=== PATIENT | male | born 1965 | race Caucasian/White ===

== ENCOUNTER 2019-10-29 21:36 | Emergency (ER) | payer SELFPAY ==
[~2019-10-29] VITALS: Ht 172.7 cm; Wt 77.1 kg
[2019-10-29 21:40] VITALS: BP_SYST 145
--- NOTE | 2019-10-29 21:40 | NUR ---
Patient triaged in er hawk and placed in er hawk w/ ambulance gurney. VSS and patient appears in no acute distress at this time. Accompanied by ems, awaiting available bed, and MD notified of need for MSE.
--- NOTE | 2019-10-29 22:13 | NUR ---
ER at bedside examining .
--- NOTE | 2019-10-29 22:13 | NUR ---
Pt brought in by s ambulance. Pt awake, alert, oriented x4. Pt chief complaint of abdominal pain x2 weeks. Pt states that he has small protrusion in right lower abdomen. Pt states that he has pain on palpation. Pt states he thinks it is "A hernia of some sort" and requested evaluation. Pt denies chest pain, nausea, vomiting, diarrhea, shortness of breath. Pt denies any other medical complaint at this time. Pt resting comfortably in chair. VSS.
[2019-10-29 23:00] LABS: BASOPHILS # (AUTO) 0.1 K/uL (0.0-0.2); BASOPHILS % (AUTO) 0.9 % (0.0-2.0); EOSINOPHILS # (AUTO) 0.3 K/uL (0.0-0.4); EOSINOPHILS % (AUTO) 3.4 % (0.0-4.0); HEMATOCRIT 40.9 % (36-54); HEMOGLOBIN 13.8 g/dL (14.0-18.0); LYMPHOCYTES % (AUTO) 25.7 % (20.5-51.5); MEAN CORPUSCULAR HEMOGLOBIN 32 pg (27-31); MEAN CORPUSCULAR HGB CONC 34 % (32-36); MEAN CORPUSCULAR VOLUME 95 fL (79.0-98.0); MONOCYTES # (AUTO) 0.5 K/uL (0.0-1.0); MONOCYTES % (AUTO) 6.7 % (1.7-9.3); NEUTROPHILS # (AUTO) 4.8 K/uL (1.8-7.7); NEUTROPHILS % (AUTO) 63.3 % (40.0-70.0); PLATELET COUNT (AUTO) 236 K/uL (130-430); RED BLOOD CELL COUNT(AUTO) 4.32 MIL/uL (4.2-6.2); RED CELL DISTRIBUTION WIDTH 14.4 % (9.0-15.0); WHITE BLOOD COUNT (AUTO) 7.6 K/uL (4.8-10.8)
[2019-10-29 23:14] LABS: CALCIUM 8.6 mg/dL (8.4-11.0); CREATININE 1.18 mg/dL (0.55-1.30); POTASSIUM 3.7 mmol/L (3.5-5.1)
[2019-10-29 23:19] LABS: ALBUMIN 3.4 g/dL (3.4-4.8); TOTAL BILIRUBIN 0.3 mg/dL (0.0-1.0)
--- NOTE | 2019-10-30 01:44 | NUR ---
BEDSIDE RE-EVALUATING PATIENT
--- NOTE | 2019-10-30 03:00 | NUR ---
Pt re-examined in ED chair. Care plan, and discharge plan discussed with patient.
[2019-10-30 04:45] VITALS: BP_SYST 140
--- NOTE | 2019-10-30 04:45 | NUR ---
Patient given written and verbal discharge instructions and verbalizes understanding. ER MD discussed with patient the results and treatment provided. Patient in stable condition. ID arm band removed. No IV Rx of tylenol given. Patient educated on pain management and to follow up with PMD. Pain Scale 0/10. Opportunity for questions provided and answered. Medication side effect fact sheet provided.
== END 2019-10-30 04:45 | disposition home or self-care (01) ==
LOC: SED 21:36
DX: K59.00 Constipation, unspecified (principal); N40.0 Benign prostatic hyperplasia without lower urinary tract symptoms; N43.3 Hydrocele, unspecified
CPT/HCPCS: 36415; 76870-TC; 80053; 83690-TC; 85025; 99285

== ENCOUNTER 2023-08-25 14:07 | Inpatient (IN) | payer MEDICAID ==
[~2023-08-25] VITALS: Ht 162.6 cm; Wt 72.6 kg
[2023-08-25 16:00] VITALS: BP_SYST 158; PULSE 118; RESP 20; TEMP 99; O2SAT 96
[2023-08-25] MEDS ORDERED: NACL 0.9% 1,000 ML IV ONE (18:15)
[2023-08-25] MEDS ORDERED: PIPERACILLIN/TAZO 3.375 GM in NS 50 ML IV ONE (18:15)
[2023-08-25 19:00] LABS: BASOPHILS # (AUTO) 0.1 K/uL (0.0-0.2); BASOPHILS % (AUTO) 0.8 % (0.0-2.0); EOSINOPHILS # (AUTO) 0.4 K/uL (0.0-0.4); EOSINOPHILS % (AUTO) 5.5 % (0.0-4.0); HEMATOCRIT 26.8 % (36-54); HEMOGLOBIN 8.8 g/dL (14.0-18.0); LYMPHOCYTES # (AUTO) 1.7 K/uL (1.0-5.5); MEAN CORPUSCULAR HEMOGLOBIN 30 pg (27-31); MEAN CORPUSCULAR HGB CONC 33 % (32-36); MEAN CORPUSCULAR VOLUME 92 fL (79.0-98.0); MONOCYTES # (AUTO) 0.7 K/uL (0.0-1.0); MONOCYTES % (AUTO) 8.2 % (1.7-9.3); NEUTROPHILS # (AUTO) 5.2 K/uL (1.8-7.7); NEUTROPHILS % (AUTO) 64.5 % (40.0-70.0); PLATELET COUNT (AUTO) 264 K/uL (130-430); RED BLOOD CELL COUNT(AUTO) 2.93 MIL/uL (4.2-6.2); RED CELL DISTRIBUTION WIDTH 16.8 % (9.0-15.0); WHITE BLOOD COUNT (AUTO) 8.1 K/uL (4.8-10.8)
[2023-08-25 19:07] LABS: PROTHROMBIN TIME 10.3 SECS (9.5-12.5)
[2023-08-25 19:08] LABS: ANION GAP 5 (5-15); CALCIUM 8.4 mg/dL (8.4-11.0); CARBON DIOXIDE 25 mmol/L (23-29); CHLORIDE 99 mmol/L (98-107); GFR AFRICAN AMERICAN 99 mL/min (>90); GLUCOSE 90 mg/dL (74-106); POTASSIUM 3.2 mmol/L (3.5-5.1); SODIUM SERUM 129 mmol/L (136-145); UREA NITROGEN, BLOOD 18 mg/dL (8-21)
[2023-08-25 19:12] LABS: GFR NON AFRICAN-AMERICAN 82 mL/min (>90)
[2023-08-25 19:28] LABS: ALANINE AMINOTRANSFERASE 58 U/L (12-78); ALBUMIN 2.3 g/dL (3.4-4.8); ASPARTATE AMINOTRANSFERASE 41 U/L (10-37); BILIRUBIN,DIRECT 0.2 mg/dL (0.0-0.3); TOTAL BILIRUBIN 0.6 mg/dL (0.0-1.0); TOTAL PROTEIN, SERUM 5.7 g/dL (6.4-8.3)
[2023-08-25] MEDS ORDERED: PIPERACILLIN/TAZOBACTAM 3.375 GM/VIAL (ZOSYN) IV ONE (21:10)
[2023-08-25 21:27] LABS: BLOOD, URINE NEGATIVE (NEGATIVE); CLARITY/URINE CLEAR (CLEAR); GLUCOSE,URINE NEGATIVE (NEGATIVE); KETONES,URINE NEGATIVE (NEGATIVE); LEUKOCYTE ESTERASE ,URINE NEGATIVE (NEGATIVE); NITRITE, URINE NEGATIVE (NEGATIVE); PROTEIN URINE 1+ (NEGATIVE)
[2023-08-25 21:38] LABS: BILIRUBIN,URINE 1+ (NEGATIVE); COLOR,URINE AMBER (YELLOW)
[2023-08-25 21:39] LABS: RBC,URINE NONE SEEN /HPF (0-3); WBC,URINE 0-3 /HPF (0-3)
[2023-08-25 21:40] LABS: BACTERIA,URINE RARE /HPF (None Seen); BARBITURATE, URINE NEGATIVE (NEG <=200); BENZODIAZEPINE, URINE NEGATIVE (NEG <=150); CANNABINOID, URINE POSITIVE (NEG <=50); COCAINE, URINE NEGATIVE (NEG <=150); METHAMPHETAMINES SCREEN,URINE POSITIVE (NEG <=500); MUCUS,URINE None Seen /LPF (None Seen); OPIATE, URINE NEGATIVE (NEG <=100); PHENCYCLIDINE SCREEN,URINE NEGATIVE (NEG <=25); URINE AMPHETAMINE POSITIVE (NEG <=500); URINE METHADONE NEGATIVE (NEG <=200); URINE OXYCODONE SCREEN NEGATIVE (NEG <=100)
[2023-08-25 21:41] LABS: UR TRICYCLIC ANTIDEPRESSANTS NEGATIVE (NEG <=300)
[2023-08-25] MEDS: NACL 0.9% 1,000 ML IV SCH (22:00)
[2023-08-25] MEDS ORDERED: VANCOMYCIN HCL 1000 MG/VIAL IV ONE (23:10)
[2023-08-26] MEDS: VANCOMYCIN HCL 1,250 MG in NS 250 ML IV SCH ×3 (00:07→23:00)
[2023-08-26] MEDS ORDERED: SODIUM BICARBONATE 8.4% JECT 50 MEQ/50 ML SYRINGE IVP ONE (00:15)
[2023-08-26 03:44] VITALS: BP_SYST 153; PULSE 115; RESP 16; TEMP 99
[2023-08-26] MEDS: NACL 0.9% 1,000 ML IV SCH ×2 (09:28→21:20)
[2023-08-26] MEDS ORDERED: POTASSIUM CHLORIDE 20 MEQ TABLET.ER PO PRN (09:30)
[2023-08-26] MEDS ORDERED: NALOXONE HCL 0.4 MG/ML AMP (NARCAN) IVP PRN (09:30)
[2023-08-26] MEDS ORDERED: LORazepam 2 MG/ML VIAL IVP PRN (09:30)
[2023-08-26] MEDS ORDERED: DOCUSATE SODIUM 100 MG CAPSULE PO PRN (09:30)
[2023-08-26] MEDS ORDERED: ONDANSETRON HCL 4 MG/2 ML VIAL IVP PRN (09:30)
[2023-08-26] MEDS ORDERED: MUPIROCIN 2% TOPICAL OINTMENT 22 GM NS PRN (09:30)
[2023-08-26] MEDS ORDERED: MAGNESIUM SULFATE 50 ML IV PRN (09:30)
[2023-08-26] MEDS ORDERED: ZOLPIDEM TARTRATE 5 MG TABLET PO PRN (09:30)
[2023-08-26] MEDS: HEPARIN SODIUM,PORCINE 5,000 UNITS/ML VIAL SUBCUT SCH ×2 (09:32→21:00)
[2023-08-26] MEDS ORDERED: ACETAMINOPHEN 500 MG TABLET PO PRN (10:00)
[2023-08-26 10:24] LABS: ALBUMIN 2.1 g/dL (3.4-4.8); CALCIUM 8.2 mg/dL (8.4-11.0); CREATININE 1.27 mg/dL (0.55-1.30); POTASSIUM 3.4 mmol/L (3.5-5.1); TOTAL BILIRUBIN 0.6 mg/dL (0.0-1.0); TOTAL PROTEIN, SERUM 5.3 g/dL (6.4-8.3)
[2023-08-26] MEDS ORDERED: NICOTINE 21 MG/24 HR PATCH.TD24 TD ONE (10:30)
[2023-08-26] MEDS ORDERED: PERMETHRIN 5% 60 GM CREAM.GM. TP ONE (10:30)
[2023-08-26] MEDS ORDERED: METOPROLOL TARTRATE 25 MG TABLET PO ONE (10:30)
[2023-08-26] MEDS ORDERED: POTASSIUM CHLORIDE 20 MEQ TABLET.ER PO ONE (10:30)
[2023-08-26 10:45] VITALS: O2SAT 98
[2023-08-26 10:45] LABS: BASOPHILS % (AUTO) 0.6 % (0.0-2.0); EOSINOPHILS # (AUTO) 0.1 K/uL (0.0-0.4); EOSINOPHILS % (AUTO) 2.1 % (0.0-4.0); HEMATOCRIT 24.9 % (36-54); HEMOGLOBIN 8.1 g/dL (14.0-18.0); LYMPHOCYTES % (AUTO) 13.5 % (20.5-51.5); MEAN CORPUSCULAR HEMOGLOBIN 30 pg (27-31); MEAN CORPUSCULAR HGB CONC 32 % (32-36); MEAN CORPUSCULAR VOLUME 92 fL (79.0-98.0); MONOCYTES # (AUTO) 0.5 K/uL (0.0-1.0); MONOCYTES % (AUTO) 6.9 % (1.7-9.3); NEUTROPHILS # (AUTO) 5.6 K/uL (1.8-7.7); NEUTROPHILS % (AUTO) 76.9 % (40.0-70.0); PLATELET COUNT (AUTO) 227 K/uL (130-430); RED BLOOD CELL COUNT(AUTO) 2.72 MIL/uL (4.2-6.2); RED CELL DISTRIBUTION WIDTH 16.7 % (9.0-15.0); WHITE BLOOD COUNT (AUTO) 7.2 K/uL (4.8-10.8)
[2023-08-26 10:55] VITALS: BP_SYST 137; PULSE 82; RESP 16; TEMP 99.4; O2SAT 99
[2023-08-26 12:23] VITALS: BP_SYST 145; PULSE 87; RESP 18; TEMP 98.2; O2SAT 98
[2023-08-26 16:56] VITALS: BP_SYST 140; PULSE 87; RESP 17; TEMP 99; O2SAT 98
[2023-08-26] MEDS ORDERED: METOPROLOL TARTRATE 25 MG TABLET PO SCH (21:00)
[2023-08-26 21:15] VITALS: BP_SYST 139; BP_SYST 143; PULSE 66; RESP 18; TEMP 99.2; O2SAT 95; O2SAT 96
[2023-08-26] MEDS: HYDROcodone/ACETAMIN 5-325 MG TAB (NORCO/ VICODIN) PO PRN (21:37)
[2023-08-27] VITALS: BP_SYST 139; PULSE 104; RESP 20; TEMP 98.3; O2SAT 96
[2023-08-27] MEDS: NACL 0.9% 1,000 ML IV SCH (05:01)
[2023-08-27] MEDS: HYDROcodone/ACETAMIN 5-325 MG TAB (NORCO/ VICODIN) PO PRN (05:01)
[2023-08-27 07:57] LABS: CALCIUM 7.4 mg/dL (8.4-11.0); CREATININE 1.18 mg/dL (0.55-1.30); POTASSIUM 4.1 mmol/L (3.5-5.1)
[2023-08-27 08:00] VITALS: BP_SYST 131; PULSE 99; RESP 16; TEMP 98.2; O2SAT 99
[2023-08-27 08:04] LABS: BASOPHILS # (AUTO) 0.1 K/uL (0.0-0.2); BASOPHILS % (AUTO) 0.8 % (0.0-2.0); EOSINOPHILS # (AUTO) 0.1 K/uL (0.0-0.4); EOSINOPHILS % (AUTO) 1.3 % (0.0-4.0); HEMATOCRIT 27.2 % (36-54); HEMOGLOBIN 8.8 g/dL (14.0-18.0); LYMPHOCYTES # (AUTO) 1.4 K/uL (1.0-5.5); LYMPHOCYTES % (AUTO) 19.3 % (20.5-51.5); MEAN CORPUSCULAR HEMOGLOBIN 30 pg (27-31); MEAN CORPUSCULAR HGB CONC 32 % (32-36); MEAN CORPUSCULAR VOLUME 92 fL (79.0-98.0); MONOCYTES # (AUTO) 0.6 K/uL (0.0-1.0); MONOCYTES % (AUTO) 8.4 % (1.7-9.3); NEUTROPHILS % (AUTO) 70.2 % (40.0-70.0); PLATELET COUNT (AUTO) 239 K/uL (130-430); RED BLOOD CELL COUNT(AUTO) 2.98 MIL/uL (4.2-6.2); RED CELL DISTRIBUTION WIDTH 16.9 % (9.0-15.0); WHITE BLOOD COUNT (AUTO) 7.1 K/uL (4.8-10.8)
[2023-08-27] MEDS ORDERED: CARVEDILOL 12.5 MG TABLET (COREG) PO SCH (09:00)
[2023-08-27] MEDS ORDERED: NICOTINE 21 MG/24 HR PATCH.TD24 TD SCH (09:00)
[2023-08-27] MEDS: HEPARIN SODIUM,PORCINE 5,000 UNITS/ML VIAL SUBCUT SCH (09:00)
[2023-08-27] MEDS ORDERED: lisinopriL 20 MG TABLET PO SCH (09:00)
[2023-08-27] MEDS: VANCOMYCIN HCL 1,250 MG in NS 250 ML IV SCH (10:09)
[2023-08-27 11:07] VITALS: BP_SYST 116; PULSE 91; RESP 16; TEMP 96.5; O2SAT 99
[2023-08-27 11:11] VITALS: O2SAT 99
[2023-08-27] MEDS ORDERED: FURO-149 PO (14:18)
[2023-08-27] MEDS ORDERED: CEPH250C PO (14:18)
[2023-08-27] MEDS ORDERED: CARV12.548 PO (14:18)
[2023-08-27] MEDS ORDERED: POTA-178 PO (14:18)
[2023-08-27 15:15] VITALS: BP_SYST 127; PULSE 87; RESP 16; TEMP 97.3; O2SAT 94
[2023-08-27 16:24] VITALS: BP_SYST 125; PULSE 85; RESP 18; TEMP 97.5; O2SAT 99
[2023-08-27] MEDS ORDERED: ASPI-1393 PO (16:39)
[2023-08-27] MEDS ORDERED: LISI20TA30 PO (16:39)
== END 2023-08-27 18:46 | disposition home or self-care (01) | DRG 383 ==
LOC: SED 14:07 → STU 21:47
PROVIDERS: ADMIT General Practice; ATTEND General Practice
DX: L03.115 Cellulitis of right lower limb (principal); I21.A1 Myocardial infarction type 2; E44.0 Moderate protein-calorie malnutrition; I42.0 Dilated cardiomyopathy; E87.1 Hypo-osmolality and hyponatremia; I42.6 Alcoholic cardiomyopathy; E87.6 Hypokalemia; F15.10 Other stimulant abuse, uncomplicated; I10 Essential (primary) hypertension; F17.210 Nicotine dependence, cigarettes, uncomplicated; F12.10 Cannabis abuse, uncomplicated; I25.5 Ischemic cardiomyopathy; I42.7 Cardiomyopathy due to drug and external agent; Z91.199 Patient's noncompliance with other medical treatment and regimen due to unspecified reason; Z79.899 Other long term (current) drug therapy; Z59.02 Unsheltered homelessness; Z68.27 Body mass index [BMI] 27.0-27.9, adult; Z71.51 Drug abuse counseling and surveillance of drug abuser; Y92.89 Other specified places as the place of occurrence of the external cause
CPT/HCPCS: 36415; 71045; 80048; 80053; 80076; 80202; 80307; 81000; 81001; 81015; 83037; 83605; 83735; 83880; 84484; 85025; 85610-TC; 85730-TC; 87040; 87086; 93005; 93306; 96365; 99291; G0378; J1644; J2543; J3370; J7050

== ENCOUNTER 2024-01-24 20:40 | Inpatient (IN) | payer SELFPAY ==
[~2024-01-24] VITALS: Ht 172.7 cm; Wt 77.6 kg
[~2024-01-24 20:40] MED LIST: ASPI-1393 PO; CARV12.548 PO; CEPH250C PO; FURO-149 PO; LISI20TA30 PO; POTA-178 PO
[2024-01-24 20:59] VITALS: BP_SYST 138; PULSE 100; RESP 16; TEMP 96.5; O2SAT 100
[2024-01-24 21:39] LABS: HEMATOCRIT 34.9 % (36-54); HEMOGLOBIN 11.5 g/dL (14.0-18.0); MEAN CORPUSCULAR HEMOGLOBIN 24 pg (27-31); MEAN CORPUSCULAR HGB CONC 33 % (32-36); MEAN CORPUSCULAR VOLUME 74 fL (79.0-98.0); PLATELET COUNT (AUTO) 232 K/uL (130-430); RED BLOOD CELL COUNT(AUTO) 4.73 MIL/uL (4.2-6.2); RED CELL DISTRIBUTION WIDTH 22.2 % (9.0-15.0); WHITE BLOOD COUNT (AUTO) 7.3 K/uL (4.8-10.8)
[2024-01-24 22:00] LABS: ALBUMIN 2.7 g/dL (3.4-4.8); CALCIUM 7.9 mg/dL (8.4-11.0); CREATININE 1.29 mg/dL (0.55-1.30); POTASSIUM 3.5 mmol/L (3.5-5.1); TOTAL BILIRUBIN 2.2 mg/dL (0.0-1.0); TOTAL PROTEIN, SERUM 6.7 g/dL (6.4-8.3)
[2024-01-24 22:04] LABS: INR 1.2 (0.80-1.20); PROTHROMBIN TIME 12.1 SECS (9.5-12.5)
[2024-01-24 22:16] LABS: BASOPHILS % (MANUAL) 0 % (0-2); EOSINOPHILS % (MANUAL) 0 % (0-7); LYMPHOCYTES % (MANUAL) 29 % (20-46); MONOCYTES % (MANUAL) 6 % (0-11)
[2024-01-24 22:17] LABS: ANISOCYTOSIS 3+; HELMET CELLS FEW; HYPOCHROMASIA 2+; OVALOCYTES FEW; PLATELET ESTIMATE ADEQUATE (ADEQUATE); TEAR DROP CELLS FEW
[2024-01-24] MEDS: PIPERACILLIN/TAZO 4.5 GM in NS 100 ML IV ONE (22:30)
[2024-01-24] MEDS: NS 1000 ML IV.SOLN IV ONE (22:50)
[2024-01-24] MEDS ORDERED: ONDANSETRON HCL 4 MG/2 ML VIAL IVP PRN (23:15)
[2024-01-24] MEDS ORDERED: hydrALAZINE HCL 20 MG/ML VIAL IVP PRN (23:15)
[2024-01-24] MEDS ORDERED: ACETAMINOPHEN 325 MG TABLET PO PRN (23:15)
[2024-01-24] MEDS ORDERED: PIPERACILLIN/TAZOBACTAM 4.5 GM/VIAL (ZOSYN) IV ONE (23:48)
[2024-01-24] MEDS: METOPROLOL TARTRATE 25 MG TABLET PO SCH (23:51)
[2024-01-25] MEDS: HYDROcodone/ACETAMIN 5-325 MG TAB (NORCO/ VICODIN) PO PRN (00:01)
[2024-01-25] MEDS ORDERED: VANCOMYCIN HCL 1000 MG/VIAL IV ONE (00:54)
[2024-01-25] MEDS: VANCOMYCIN HCL 1 GM/NS PREMIX 250 ML IV ONE (01:03)
[2024-01-25] MEDS: NICOTINE 21 MG/24 HR PATCH.TD24 TD ONE (01:27)
[2024-01-25] MEDS: NICOTINE 21 MG/24 HR PATCH.TD24 TD SCH (01:40)
[2024-01-25 02:05] LABS: BILIRUBIN,URINE 2+ (NEGATIVE); BLOOD, URINE NEGATIVE (NEGATIVE); CLARITY/URINE CLEAR (CLEAR); COLOR,URINE YELLOW (YELLOW); GLUCOSE,URINE NEGATIVE (NEGATIVE); KETONES,URINE NEGATIVE (NEGATIVE); LEUKOCYTE ESTERASE ,URINE NEGATIVE (NEGATIVE); NITRITE, URINE POSITIVE (NEGATIVE); PH,URINE 5.5 (5.0-8.0); PROTEIN URINE 2+ (NEGATIVE)
[2024-01-25 02:14] LABS: BACTERIA,URINE MODERATE /HPF (None Seen)
[2024-01-25 02:19] LABS: BARBITURATE, URINE NEGATIVE (NEG <=200); BENZODIAZEPINE, URINE NEGATIVE (NEG <=150); CANNABINOID, URINE NEGATIVE (NEG <=50); COCAINE, URINE NEGATIVE (NEG <=150); METHAMPHETAMINES SCREEN,URINE POSITIVE (NEG <=500); PHENCYCLIDINE SCREEN,URINE NEGATIVE (NEG <=25); URINE AMPHETAMINE POSITIVE (NEG <=500); URINE METHADONE NEGATIVE (NEG <=200)
[2024-01-25 02:20] LABS: OPIATE, URINE NEGATIVE (NEG <=100); UR TRICYCLIC ANTIDEPRESSANTS NEGATIVE (NEG <=300); URINE OXYCODONE SCREEN NEGATIVE (NEG <=100)
[2024-01-25 07:32] LABS: BASOPHILS % (AUTO) 0.6 % (0.0-2.0); EOSINOPHILS % (AUTO) 0.4 % (0.0-4.0); HEMATOCRIT 34.4 % (36-54); HEMOGLOBIN 11.3 g/dL (14.0-18.0); LYMPHOCYTES % (AUTO) 28.3 % (20.5-51.5); MEAN CORPUSCULAR HEMOGLOBIN 25 pg (27-31); MEAN CORPUSCULAR HGB CONC 33 % (32-36); MEAN CORPUSCULAR VOLUME 75 fL (79.0-98.0); MONOCYTES # (AUTO) 0.6 K/uL (0.0-1.0); MONOCYTES % (AUTO) 8.6 % (1.7-9.3); NEUTROPHILS # (AUTO) 4.3 K/uL (1.8-7.7); NEUTROPHILS % (AUTO) 62.1 % (40.0-70.0); PLATELET COUNT (AUTO) 226 K/uL (130-430); RED BLOOD CELL COUNT(AUTO) 4.61 MIL/uL (4.2-6.2); RED CELL DISTRIBUTION WIDTH 21.6 % (9.0-15.0)
[2024-01-25 08:00] LABS: ALBUMIN 2.4 g/dL (3.4-4.8); CALCIUM 8.2 mg/dL (8.4-11.0); CREATININE 1.25 mg/dL (0.55-1.30); POTASSIUM 3.8 mmol/L (3.5-5.1); TOTAL BILIRUBIN 2.2 mg/dL (0.0-1.0); TOTAL PROTEIN, SERUM 6.2 g/dL (6.4-8.3)
[2024-01-25 08:17] LABS: HEMOGLOBIN A1C 6.3 % (<5.7)
[2024-01-25] MEDS: HEPARIN SODIUM, PORCINE 10,000 UNITS/ 10 ML VIAL SUBCUT SCH (09:33)
[2024-01-25] MEDS: VANCOMYCIN HCL 750 MG in NS 250 ML IV SCH (12:44)
[2024-01-25] MEDS: CARVEDILOL 3.125 MG TABLET (COREG) PO ONE (14:45)
[2024-01-25] MEDS: lisinopriL 20 MG TABLET PO ONE (14:45)
[2024-01-25 20:05] VITALS: BP_SYST 120; PULSE 96; RESP 22; TEMP 98; O2SAT 95
[2024-01-25] MEDS: CARVEDILOL 3.125 MG TABLET (COREG) PO SCH (21:00)
[2024-01-26] VITALS (7 sets, daily range): BP systolic 108–131; PULSE 77–97; RESP 15–20; TEMP 97.5–99; O2SAT 94–97
[2024-01-26] MEDS: VANCOMYCIN HCL 1000 MG/VIAL IV ONE (01:07)
[2024-01-26 07:49] LABS: ALBUMIN 2.3 g/dL (3.4-4.8); CALCIUM 8.3 mg/dL (8.4-11.0); CREATININE 1.34 mg/dL (0.55-1.30); POTASSIUM 4.2 mmol/L (3.5-5.1); TOTAL BILIRUBIN 3.2 mg/dL (0.0-1.0); TOTAL PROTEIN, SERUM 5.8 g/dL (6.4-8.3); VANCOMYCIN,TROUGH 19.3 ug/mL (10.0-20.0)
[2024-01-26 08:18] LABS: BASOPHILS # (AUTO) 0.1 K/uL (0.0-0.2); BASOPHILS % (AUTO) 0.7 % (0.0-2.0); EOSINOPHILS % (AUTO) 0.3 % (0.0-4.0); HEMATOCRIT 35.5 % (36-54); HEMOGLOBIN 11.6 g/dL (14.0-18.0); LYMPHOCYTES # (AUTO) 1.7 K/uL (1.0-5.5); LYMPHOCYTES % (AUTO) 22.4 % (20.5-51.5); MEAN CORPUSCULAR HEMOGLOBIN 25 pg (27-31); MEAN CORPUSCULAR HGB CONC 33 % (32-36); MEAN CORPUSCULAR VOLUME 75 fL (79.0-98.0); MONOCYTES # (AUTO) 0.7 K/uL (0.0-1.0); MONOCYTES % (AUTO) 8.7 % (1.7-9.3); NEUTROPHILS # (AUTO) 5.2 K/uL (1.8-7.7); NEUTROPHILS % (AUTO) 67.9 % (40.0-70.0); PLATELET COUNT (AUTO) 226 K/uL (130-430); RED BLOOD CELL COUNT(AUTO) 4.72 MIL/uL (4.2-6.2); RED CELL DISTRIBUTION WIDTH 21.6 % (9.0-15.0); WHITE BLOOD COUNT (AUTO) 7.7 K/uL (4.8-10.8)
[2024-01-26] MEDS: lisinopriL 20 MG TABLET PO SCH (09:13)
[2024-01-26] MEDS: FUROSEMIDE 40 MG/4 ML VIAL IVP SCH (09:14)
[2024-01-26] MEDS: HEPARIN SODIUM,PORCINE 5,000 UNITS/ML VIAL SUBCUT ONE (09:30)
[2024-01-26] MEDS ORDERED: CEPH-548 PO (11:50)
[2024-01-26] MEDS ORDERED: SULF1TAB48 PO (11:52)
[2024-01-26] MEDS: VANCOMYCIN HCL 1,000 MG in NS 250 ML IV SCH (12:15)
[2024-01-26] MEDS: BALSAM PERU/CASTOR OIL 56.7 GM OINT...G. TP ONE ×2 (15:40→17:26)
[2024-01-26] MEDS: HEPARIN SODIUM,PORCINE 5,000 UNITS/ML VIAL SUBCUT SCH (21:00)
[2024-01-27] VITALS (7 sets, daily range): BP systolic 107–146; PULSE 71–100; RESP 16–18; TEMP 96.9–98.4; O2SAT 95–98
[2024-01-27] MEDS ORDERED: BALSAM PERU/CASTOR OIL 56.7 GM OINT...G. TP SCH ×2 (09:00)
[2024-01-27] MEDS: BALSAM PERU/CASTOR OIL 56.7 GM OINT...G. TP SCH (09:40)
[2024-01-27] MEDS ORDERED: AUG875 PO (09:46)
[2024-01-27 10:24] LABS: BASOPHILS % (AUTO) 0.4 % (0.0-2.0); EOSINOPHILS % (AUTO) 0.2 % (0.0-4.0); HEMOGLOBIN 11.3 g/dL (14.0-18.0); LYMPHOCYTES # (AUTO) 1.5 K/uL (1.0-5.5); LYMPHOCYTES % (AUTO) 16.6 % (20.5-51.5); MEAN CORPUSCULAR HEMOGLOBIN 25 pg (27-31); MEAN CORPUSCULAR HGB CONC 33 % (32-36); MEAN CORPUSCULAR VOLUME 75 fL (79.0-98.0); MONOCYTES # (AUTO) 0.9 K/uL (0.0-1.0); MONOCYTES % (AUTO) 10.3 % (1.7-9.3); NEUTROPHILS # (AUTO) 6.4 K/uL (1.8-7.7); NEUTROPHILS % (AUTO) 72.5 % (40.0-70.0); PLATELET COUNT (AUTO) 231 K/uL (130-430); RED BLOOD CELL COUNT(AUTO) 4.56 MIL/uL (4.2-6.2); RED CELL DISTRIBUTION WIDTH 22.3 % (9.0-15.0); WHITE BLOOD COUNT (AUTO) 8.9 K/uL (4.8-10.8)
[2024-01-27 10:26] LABS: ERYTHROCYTE SEDIMENTATION RATE 14 MM/HR (0-15)
[2024-01-27 11:10] LABS: CALCIUM 8.1 mg/dL (8.4-11.0); CREATININE 1.57 mg/dL (0.55-1.30); POTASSIUM 4.3 mmol/L (3.5-5.1)
[2024-01-27] MEDS: AMPICILLIN SODIUM/SULBACTAM NA 3 GM in NS 100 ML IV SCH (11:52)
[2024-01-28] VITALS (7 sets, daily range): BP systolic 102–119; PULSE 69–90; RESP 16–18; TEMP 97.3–98.3; O2SAT 93–98
[2024-01-28 05:54] LABS: BASOPHILS % (AUTO) 0.5 % (0.0-2.0); EOSINOPHILS % (AUTO) 0.4 % (0.0-4.0); HEMATOCRIT 32.7 % (36-54); HEMOGLOBIN 10.8 g/dL (14.0-18.0); LYMPHOCYTES # (AUTO) 1.6 K/uL (1.0-5.5); MEAN CORPUSCULAR HEMOGLOBIN 25 pg (27-31); MEAN CORPUSCULAR HGB CONC 33 % (32-36); MEAN CORPUSCULAR VOLUME 75 fL (79.0-98.0); MONOCYTES # (AUTO) 0.7 K/uL (0.0-1.0); MONOCYTES % (AUTO) 8.9 % (1.7-9.3); NEUTROPHILS # (AUTO) 5.4 K/uL (1.8-7.7); NEUTROPHILS % (AUTO) 69.2 % (40.0-70.0); PLATELET COUNT (AUTO) 208 K/uL (130-430); RED BLOOD CELL COUNT(AUTO) 4.36 MIL/uL (4.2-6.2); RED CELL DISTRIBUTION WIDTH 22.1 % (9.0-15.0); WHITE BLOOD COUNT (AUTO) 7.8 K/uL (4.8-10.8)
[2024-01-28 06:48] LABS: CALCIUM 7.6 mg/dL (8.4-11.0); CREATININE 1.34 mg/dL (0.55-1.30); POTASSIUM 3.6 mmol/L (3.5-5.1)
[2024-01-29 00:09] VITALS: BP_SYST 104; PULSE 87; RESP 16; TEMP 98.2; O2SAT 96
[2024-01-29 06:02] LABS: CALCIUM 8.1 mg/dL (8.4-11.0); CREATININE 1.36 mg/dL (0.55-1.30); POTASSIUM 4.2 mmol/L (3.5-5.1)
[2024-01-29 08:15] VITALS: O2SAT 99
[2024-01-29] MEDS: LISINOPRIL 10 MG TABLET (PRINIVIL) PO SCH (09:21)
[2024-01-29 11:12] VITALS: BP_SYST 99; PULSE 65; RESP 18; TEMP 99; O2SAT 98
[2024-01-29 13:41] VITALS: BP_SYST 125; PULSE 78; RESP 18; TEMP 97.5; O2SAT 98
== END 2024-01-29 14:38 | disposition home or self-care (01) | DRG 540 ==
LOC: SED 20:40 → STU 23:02 → SMU 01-26 17:22
PROVIDERS: ADMIT Internal Medicine; ATTEND Internal Medicine
DX: M86.8X7 Other osteomyelitis, ankle and foot (principal); I13.0 Hypertensive heart and chronic kidney disease with heart failure and stage 1 through stage 4 chronic kidney disease, or unspecified chronic kidney disease; I50.22 Chronic systolic (congestive) heart failure; Z59.00 Homelessness unspecified; L03.031 Cellulitis of right toe; F19.10 Other psychoactive substance abuse, uncomplicated; I25.5 Ischemic cardiomyopathy; R73.03 Prediabetes; N18.30 Chronic kidney disease, stage 3 unspecified
CPT/HCPCS: 36415; 71045; 80048; 80053; 80061; 80202; 80307; 81000; 81001; 81015; 83037; 83605; 83880; 84484; 85007; 85025; 85027; 85610; 85651; 87040; 87070; 87075; 87086; 93005; 97110-GP; 97530-GP; 99285; G0378; J0295; J1644; J1940; J2543; J3370; J7050